=== PATIENT | male | born 1965 | race American Indian/Alaskan Native ===

== ENCOUNTER 2020-05-07 13:22 | Emergency (ER) | payer SELFPAY ==
--- NOTE | 2020-05-07 14:32 | Event Note ---
ED Screening Note ED Screening Note: right flank and right abd pain that began on 04/29/2020 states he was started on cipro and tamsulosin by a doctor on 04/29/2020 he completed a course +dysuria +frequency no dark urine or odor to urine no penile discharge no pain or swelling to the testicle PMHx HTN, did not take it today no allergies to meds This initial assessment/diagnostic orders/clinical plan/treatment(s) is/are subject to change based on patients health status, clinical progression and re- assessment by fellow clinical providers in the ED. Further treatment and workup at subsequent clinical providers discretion. Patient/guardian urged not to elope from the ED as their condition may be serious if not clinically assessed and managed. Initial orders include: labs, CT, UA
--- NOTE | 2020-05-07 15:31 | Cat Scan Report ---
CT ABDOMEN AND PELVIS WITHOUT CONTRAST HISTORY: Right flank pain. COMPARISON: None TECHNIQUE: Routine abdominal and pelvic CT exam performed without contrast. Lack of intravenous cont rast limits evaluation of the vascular and solid organs.. All CT scans at this location are performed using CT dose reduction for ALARA by means of automated exposure control. FINDINGS: CT ABDOMEN: Lung Bases: No significant abnormality. Liver: No significant abnormality. Biliary: No significant abnormality. Spleen: No significant abnormality. Unenlarged. Pancreas: No significant abnormality. Adrenals: No significant abnormality. Kidneys: There is a small 1 cm cyst in the lateral lower left kidney. There are no urinary stones or hydronephrosis. Lymphatics: No lymphadenopathy. Vasculature: No significant abnormality. Bowel/Peritoneum: No acute abnormality. No free air. No free fluid. Normal appendix. Moderate constip ation. CT PELVIC: : No significant abnormality. Lymphatics: No lymphadenopathy. Osseous Structures: No aggressive appearing osseous lesions. Additional Findings: None IMPRESSION: 1. No acute findings. 2. Moderate constipation. Signer Name: Evens Seay MD Signed: 05/07/2020 3:26 PM Workstation Name: [email or web address]
[2020-05-07 15:39] LABS: Basophils % (Auto) 0.6 % (0.0-1.8); Eosinophils # (Auto) 0.2 K/mm3 (0.0-0.4); Eosinophils % (Auto) 2.2 % (0.0-4.3); Hematocrit 45.9 % (35.5-45.6); Hemoglobin 15.3 gm/dl (11.8-15.2); Lymphocytes # (Auto) 3.2 K/mm3 (1.2-5.4); Lymphocytes % (Auto) 37.8 % (13.4-35.0); Mean Corpuscular HGB Conc 33 % (32-34); Mean Corpuscular Volume 88 fl (84-94); Monocytes # (Auto) 0.6 K/mm3 (0.0-0.8); Monocytes % (Auto) 7.1 % (0.0-7.3); Platelet Count 252 K/mm3 (140-440); Red Blood Count 5.24 M/mm3 (3.65-5.03); Red Cell Distribution Width 14.9 % (13.2-15.2)
[2020-05-07 15:53] LABS: Alanine Aminotransferase 9 units/L (7-56); Albumin 4.3 g/dL (3.9-5); BUN/Creatinine Ratio 10; Blood Urea Nitrogen 12 mg/dL (9-20); Calcium 9.4 mg/dL (8.4-10.2); Hemolysis Index 6
[2020-05-07 15:58] LABS: Bilirubin,Urine NEG (Negative); Blood,Urine NEG (Negative); Color,Urine Yellow (Yellow); Mucus,Urine FEW /HPF; Protein,Urine <15 mg/dL mg/dL (Negative); Urobilinogen,Urine < 2.0 mg/dL (<2.0)
--- NOTE | 2020-05-07 20:05 | Emergency Department Report ---
ED Abdominal Pain HPI - General Chief Complaint: Abdominal Pain Stated Complaint: ABD PAIN, SIDE PAIN Time Seen by Provider: 05/07/20 14:32 Source: patient Mode of arrival: Ambulatory Limitations: No Limitations - History of Present Illness Initial Comments: Patient is a 54-year-old -[place] male who presents for abdominal pain radiating from right flank suprapubic x3 days. Patient has been on Cipro as prescribed by PCP. Patient denies history of renal stones. However has been having hard firm stools. Symptoms are exacerbated by movement and palpation. Symptoms are relieved by nothing tried. pain rated at 5/10 aching and spasm MD Complaint: abdominal pain, flank pain - Related Data Previous Rx's Medication Instructions Recorded Last Taken Type polyethylene glycoL 3350 [Miralax 17 gm PO BID PRN #14 packet 05/07/20 Unknown Rx 3350] Allergies Allergy/AdvReac Type Severity Reaction Status Date / Time No Known Allergies Allergy Unverified 05/07/20 14:12 ED Review of Systems ROS: Stated complaint: ABD PAIN, SIDE PAIN Other details as noted in HPI Constitutional: denies: chills, fever Eyes: denies: eye pain, eye discharge, vision change ENT: denies: ear pain, throat pain Respiratory: denies: cough, shortness of breath, wheezing Cardiovascular: denies: chest pain, palpitations Endocrine: no symptoms reported Gastrointestinal: abdominal pain, nausea, constipation. denies: vomiting, melena Genitourinary: denies: urgency, dysuria Musculoskeletal: back pain. denies: joint swelling, arthralgia Skin: denies: rash, lesions Neurological: denies: headache, weakness, paresthesias Psychiatric: denies: anxiety, depression Hematological/Lymphatic: denies: easy bleeding, easy bruising ED Past Medical Hx - Past Medical History Hx Hypertension: Yes - Surgical History Past Surgical History?: No - Medications Home Medications: Home Medications Medication Instructions Recorded Confirmed Last Taken Type polyethylene glycoL 3350 [Miralax 17 gm PO BID PRN #14 packet 05/07/20 Unknown Rx 3350] ED Physical Exam - General Limitations: No Limitations General appearance: alert - Head Head exam: Present: atraumatic, normocephalic - Eye Eye exam: Present: normal appearance, EOMI Pupils: Present: normal accommodation - ENT ENT exam: Present: mucous membranes moist - Neck Neck exam: Present: normal inspection - Respiratory Respiratory exam: Present: normal lung sounds bilaterally. Absent: respiratory distress, wheezes, stridor, chest wall tenderness - Cardiovascular Cardiovascular Exam: Present: regular rate, normal rhythm, normal heart sounds - GI/Abdominal GI/Abdominal exam: Present: soft, tenderness (LLQ and superpubic to deep palpation), normal bowel sounds. Absent: distended, guarding, rebound, rigid, bruit, hernia - Expanded GI/Abdominal Exam Expanded GI/Abdominal exam: Absent: psoas sign, obturator sign, heel tap sign, Sen's sign, Rovsing's sign, tenderness at Mcburney's Point, ascites - Rectal Rectal exam: Present: deferred - Extremities Exam Extremities exam: Present: normal inspection, full ROM. Absent: tenderness, pedal edema - Back Exam Back exam: Present: normal inspection, full ROM, tenderness, CVA tenderness (R). Absent: CVA tenderness (L), vertebral tenderness - Neurological Exam Neurological exam: Present: alert, oriented X3, CN II-XII intact, normal gait - Psychiatric Psychiatric exam: Present: normal affect, normal mood - Skin Skin exam: Present: warm, dry, intact, normal color. Absent: rash ED Course Vital Signs 05/07/20 14:17 Temperature 98.7 F Pulse Rate 95 H Respiratory 16 Rate Blood Pressure 166/110 O2 Sat by Pulse 96 Oximetry ED Medical Decision Making - Lab Data Result diagrams: 05/07/20 15:18 05/07/20 15:18 Labs 05/07/20 05/07/20 05/07/20 15:18 15:18 15:40 WBC 8.5 RBC 5.24 H Hgb 15.3 H Hct 45.9 H MCV 88 MCH 29 MCHC 33 RDW 14.9 Plt Count 252 Lymph % (Auto) 37.8 H [place] % (Auto) 7.1 Eos % (Auto) 2.2 Baso % (Auto) 0.6 Lymph # (Auto) 3.2 [place] # (Auto) 0.6 Eos # (Auto) 0.2 Baso # (Auto) 0.0 Seg Neutrophils % 52.3 Seg Neutrophils # 4.4 Sodium 138 Potassium 3.7 Chloride 101.3 Carbon Dioxide 29 Anion Gap 11 BUN 12 Creatinine 1.2 Estimated GFR > 60 BUN/Creatinine Ratio 10 Glucose 98 Calcium 9.4 Total Bilirubin 0.70 AST 21 ALT 9 Alkaline Phosphatase 61 Total Protein 8.3 H Albumin 4.3 Albumin/Globulin Ratio 1.1 Urine Color Yellow Urine Turbidity Clear Urine pH 7.0 Ur Specific [place] 1.014 Urine Protein <15 mg/dl Urine Glucose (UA) Neg Urine Ketones Neg Urine Blood Neg Urine Nitrite Neg Urine Bilirubin Neg Urine Urobilinogen < 2.0 Ur Leukocyte Esterase Neg Urine WBC (Auto) 2.0 Urine RBC (Auto) 6.0 U Epithel Cells (Auto) 1.0 Urine Mucus Few - Radiology Data Radiology results: report reviewed, image reviewed Findings Reporting MD: Evens Seay Dictation Time: May 07, 2020 14:26 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 COMPARISON: None TECHNIQUE: Routine abdominal and pelvic CT exam performed without contrast. Lack of intravenous contrast limits evaluation of the vascular and solid organs.. All CT scans at this location are performed using CT dose reduction for ALARA by means of automated exposure control. FINDINGS: CT ABDOMEN: Lung Bases: No significant abnormality. Liver: No significant abnormality. Biliary: No significant abnormality. Spleen: No significant abnormality. Unenlarged. Pancreas: No significant abnormality. Adrenals: No significant abnormality. Kidneys: There is a small 1 cm cyst in the lateral lower left kidney. There are no urinary stones or hydronephrosis. Lymphatics: No lymphadenopathy. Vasculature: No significant abnormality. Bowel/Peritoneum: No acute abnormality. No free air. No free fluid. Normal appendix. Moderate constipation. CT PELVIC: : No significant abnormality. Lymphatics: No lymphadenopathy. Osseous Structures: No aggressive appearing osseous lesions. Additional Findin gs: None IMPRESSION: 1. No acute findings. 2. Moderate constipation. Signer Name: Evens Seay MD Signed: 05/07/2020 2:26 PM Workstation Name: [id number] - Medical Decision Making CT abdomen and pelvis no obstruction no bleed there is moderate constipation thr oughout large intestine. there is a chronic 5 mm renal cyst. Patient advises symptoms are improved with medications given in ED. Plan DC to home finish ciprofloxacin as prescribed by PCP. NSAIDs as needed pain. Continue to hydrate as directed. Return to ED should symptoms worsen. Patient given prescription for MiraLAX p.o. for as needed constipation. Patient DC'd to home in stable condition at this time Critical care attestation.: If time is entered above; I have spent that time in minutes in the direct care of this critically ill patient, excluding procedure time. ED Disposition Clinical Impression: Renal cyst Constipation Qualifiers: Constipation type: unspecified constipation type Qualified Code(s): K59.00 - Constipation, unspecified Abdominal pain Qualifiers: Abdominal location: unspecified location Qualified Code(s): R10.9 - Unspecified abdominal pain Disposition: TO HOME OR SELFCARE Is pt being admited?: No Does the pt Need Aspirin: No Condition: Stable Instructions: Constipation, Adult, Abdominal Pain, Adult, [id number] Prescriptions: polyethylene glycoL 3350 [Miralax 3350] 17 gm PO BID PRN #14 packet PRN Reason: Constipation Referrals: MUNDO BEAL MD [Staff Physician] - 3-5 Days AUDRA SILVERIO MD [Staff Physician] - 3-5 Days Forms: Work/School Release Form(ED) Time of Disposition: 20:24
[2020-05-07 20:37] VITALS: BP 165/90
== END 2020-05-07 20:37 | disposition home or self-care (01) ==
LOC: ED 13:22
DX: N28.1 Cyst of kidney, acquired (principal); K59.00 Constipation, unspecified; I10 Essential (primary) hypertension; Z79.899 Other long term (current) drug therapy
CPT/HCPCS: 36415; 74176; 80053; 81001; 85025

== ENCOUNTER 2020-05-19 12:17 | Emergency (ER) | payer SELFPAY ==
--- NOTE | 2020-05-19 12:41 | Emergency Department Report ---
Blank Doc - Documentation Documentation: 54-year-old male that presents with RUQ pain with radiation to right flank. This initial assessment/diagnostic orders/clinical plan/treatment(s) is/are subject to change based on patient's health status, clinical progression and re- assessment by fellow clinical providers in the ED. Further treatment and workup at subsequent clinical providers discretion. Patient/guardians urged not to elope from the ED as their condition may be serious if not clinically assessed and managed. Initial orders include: 1- Patient sent to [facility] for further evaluation and treatment 2- labs 3- UA 4- US ABD
[2020-05-19 15:42] LABS: Basophils % (Auto) 0.3 % (0.0-1.8); Eosinophils # (Auto) 0.1 K/mm3 (0.0-0.4); Eosinophils % (Auto) 1.5 % (0.0-4.3); Hemoglobin 15.2 gm/dl (11.8-15.2); Lymphocytes # (Auto) 2.8 K/mm3 (1.2-5.4); Lymphocytes % (Auto) 27.6 % (13.4-35.0); Mean Corpuscular HGB Conc 34 % (32-34); Mean Corpuscular Volume 87 fl (84-94); Monocytes # (Auto) 0.7 K/mm3 (0.0-0.8); Monocytes % (Auto) 6.7 % (0.0-7.3); Platelet Count 266 K/mm3 (140-440); Red Blood Count 5.15 M/mm3 (3.65-5.03); Red Cell Distribution Width 14.6 % (13.2-15.2)
[2020-05-19 15:56] LABS: Alanine Aminotransferase 9 units/L (7-56); Albumin 4.2 g/dL (3.9-5); BUN/Creatinine Ratio 10; Blood Urea Nitrogen 12 mg/dL (9-20); Calcium 9.6 mg/dL (8.4-10.2); Hemolysis Index 16
--- NOTE | 2020-05-19 16:51 | Ultrasound Report ---
ULTRASOUND ABDOMEN, COMPLETE INDICATION / CLINICAL INFORMATION: RUQ pain. COMPARISON: 05/07/2020 CT abdomen pelvis FINDINGS: Technically difficult examination secondary to patient body habitus, positioning, and overl eddie bowel gas. PANCREAS: No significant abnormality. ABDOMINAL AORTA: No significant abnormality. IVC: No significant abnormality. LIVER: Normal size with few scattered increased echogenicity suggesting fatty infiltration. No focal lesion. GALLBLADDER: Echogenic stones at the gallbladder neck and body measuring up to 1.6 cm. Gallbladder wa ll measures at the upper limits of normal. BILE DUCTS: No significant abnormality. Common bile duct measures 2 mm. KIDNEYS: Right: No significant abnormality. Left: 1.2 cm simple cyst at the inferior pole. SPLEEN: No significant abnormality. FREE FLUID: None. ADDITIONAL FINDINGS: None. IMPRESSION: 1. Echogenic stones at the gallbladder neck and body. No convincing evidence of acute cholecystitis. 2. Diffusely increased hepatic echogenicity suggesting some degree of fatty infiltration. 3. Small left renal cyst. Signer Name: Johann Back MD Signed: 05/19/2020 4:46 PM Workstation Name: [id number]
--- NOTE | 2020-05-19 19:45 | Emergency Department Report ---
ED Abdominal Pain HPI - General Chief Complaint: Abdominal Pain Stated Complaint: SIDE PAIN Time Seen by Provider: 05/19/20 12:40 Source: patient Mode of arrival: Ambulatory Limitations: No Limitations - History of Present Illness Initial Comments: Patient is a 54-year-old male presents emergency room with complaints of right upper quadrant abdominal pain that radiates to the back that began on 05/07/2020. He states that occasionally he does have nausea. he states that within the last 2 weeks he has had approximately 3-4 episodes of vomiting when the pain gets uncomfortable. He is able to tolerate p.o. intake and has no episodes of vomiting today. He denies any diarrhea, fever, hematochezia, hematemesis, melena, urinary symptoms. He has a past medical history of hypertension. No allergies to medications. He endorses alcohol use on the w [employer]. He denies any drug or smoking history. - Related Data Previous Rx's Medication Instructions Recorded Last Taken Type polyethylene glycoL 3350 [Miralax 17 gm PO BID PRN #14 packet 05/07/20 Unknown Rx 3350] Docusate Sodium [Colace] 100 mg PO BID PRN #20 capsule 05/19/20 Unknown Rx Famotidine [Pepcid] 40 mg PO QHS #14 tablet 05/19/20 Unknown Rx Ondansetron [Zofran Odt] 4 mg PO Q8HR PRN #10 tab.rapdis 05/19/20 Unknown Rx traMADoL [Ultram 50 MG tab] 50 mg PO Q8HR PRN #12 tablet 05/19/20 Unknown Rx Allergies Allergy/AdvReac Type Severity Reaction Status Date / Time No Known Allergies Allergy Unverified 05/07/20 14:12 ED Review of Systems ROS: Stated complaint: SIDE PAIN Other details as noted in HPI Comment: All other systems reviewed and negative ED Past Medical Hx - Past Medical History Previous Medical History?: Yes Hx Hypertension: Yes - Social History Smoking Status: Unknown if ever smoked - Medications Home Medications: Home Medications Medication Instructions Recorded Confirmed Last Taken Type polyethylene glycoL 3350 [Miralax 17 gm PO BID PRN #14 packet 05/07/20 Unknown Rx 3350] Docusate Sodium [Colace] 100 mg PO BID PRN #20 capsule 05/19/20 Unknown Rx Famotidine [Pepcid] 40 mg PO QHS #14 tablet 05/19/20 Unknown Rx Ondansetron [Zofran Odt] 4 mg PO Q8HR PRN #10 tab.rapdis 05/19/20 Unknown Rx traMADoL [Ultram 50 MG tab] 50 mg PO Q8HR PRN #12 tablet 05/19/20 Unknown Rx ED Physical Exam - General Limitations: No Limitations General appearance: alert, in no apparent distress - Head Head exam: Present: atraumatic, normocephalic - Eye Eye exam: Present: normal appearance - ENT ENT exam: Present: mucous membranes moist - Respiratory Respiratory exam: Present: normal lung sounds bilaterally. Absent: respiratory distress, wheezes, rales, rhonchi, stridor, chest wall tenderness, accessory muscle use, decreased breath sounds, prolonged expiratory - Cardiovascular Cardiovascular Exam: Present: regular rate, normal rhythm, normal heart sounds. Absent: systolic murmur, diastolic murmur, rubs, gallop - GI/Abdominal GI/Abdominal exam: Present: soft, normal bowel sounds, other (negative murphys sign, no mcburneys point ttp, negative castillo turners and cullens sign, no per itoneal signs). Absent: distended, tenderness, guarding, rebound, rigid - Neurological Exam Neurological exam: Present: alert, oriented X3 - Psychiatric Psychiatric exam: Present: normal affect, normal mood - Skin Skin exam: Present: warm, dry, intact ED Course Vital Signs 05/19/20 05/19/20 05/19/20 12:29 20:48 20:49 Temperature 98.6 F Pulse Rate 79 89 81 Respiratory 20 18 Rate Blood Pressure 166/128 Blood Pressure 156/100 [Right] O2 Sat by Pulse 99 99 Oximetry ED Medical Decision Making - Lab Data Result diagrams: 05/19/20 15:21 05/19/20 15:21 Lab Results 05/19/20 05/19/20 Range/Units 15:21 15:21 WBC 10.0 (4.5-11.0) K/mm3 RBC 5.15 H (3.65-5.03) M/mm3 Hgb 15.2 (11.8-15.2) gm/dl Hct 45.0 (35.5-45.6) % MCV 87 (84-94) fl MCH 30 (28-32) pg MCHC 34 (32-34) % RDW 14.6 (13.2-15.2) % Plt Count 266 (140-440) K/mm3 Lymph % (Auto) 27.6 (13.4-35.0) % [place] % (Auto) 6.7 (0.0-7.3) % Eos % (Auto) 1.5 (0.0-4.3) % Baso % (Auto) 0.3 (0.0-1.8) % Lymph # (Auto) 2.8 (1.2-5.4) K/mm3 [place] # (Auto) 0.7 (0.0-0.8) K/mm3 Eos # (Auto) 0.1 (0.0-0.4) K/mm3 Baso # (Auto) 0.0 (0.0-0.1) K/mm3 Seg Neutrophils % 63.9 (40.0-70.0) % Seg Neutrophils # 6.4 (1.8-7.7) K/mm3 Sodium 141 (137-145) mmol/L Potassium 4.0 (3.6-5.0) mmol/L Chloride 104.5 (98-107) mmol/L Carbon Dioxide 30 (22-30) mmol/L Anion Gap 11 mmol/L BUN 12 (9-20) mg/dL Creatinine 1.2 (0.8-1.3) mg/dL Estimated GFR > 60 ml/min BUN/Creatinine Ratio 10 % Glucose 103 H (75-100) mg/dL Calcium 9.6 (8.4-10.2) mg/dL Total Bilirubin 0.70 (0.1-1.2) mg/dL AST 14 (5-40) units/L ALT 9 (7-56) units/L Alkaline Phosphatase 61 (35-129) units/L Total Protein 8.0 (6.3-8.2) g/dL Albumin 4.2 (3.9-5) g/dL Albumin/Globulin Ratio 1.1 % Lipase 15 (13-60) units/L Vital Signs 05/19/20 05/19/20 05/19/20 12:29 20:48 20:49 Temperature 98.6 F Pulse Rate 79 89 81 Respiratory 20 18 Rate Blood Pressure 166/128 Blood Pressure 156/100 [Right] O2 Sat by Pulse 99 99 Oximetry - Radiology Data Radiology results: report reviewed Ordering Physician: NAN LINARES NP Date of Service: 05/19/20 Procedure(s): US abdomen complete Accession Number(s): [id number] cc: NAN LINARES NP ADDENDUM There is a single 1.6 cm stone in the gallbladder. Signer Name: Cristofer Castaneda MD Signed: 05/19/2020 4:55 PM Workstation Name: [id number] Addendum Transcribed By: Addendum Dictated By: Cristofer Castaneda MD Addendum Electronically Authenticated By: Cristofer Castaneda MD Addendum Signed Date/Time: 05/19/201654 DD/ /03/1654 TD/TT: / ULTRASOUND ABDOMEN, COMPLETE INDICATION / CLINICAL INFORMATION: RUQ pain. COMPARISON: 05/07/2020 CT abdomen pelvis FINDINGS: Technically difficult examination secondary to patient body habitus, positioning, and overlying bowel gas. PANCREAS: No significant abnormality. ABDOMINAL AORTA: No significant abnormality. IVC: No significant abnormality. LIVER: Normal size with few scattered increased echogenicity suggesting fatty infiltration. No focal lesion. GALLBLADDER: Echogenic stones at the gallbladder neck and body measuring up to 1.6 cm. Gallbladder wall measures at the upper limits of normal. BILE DUCTS: No significant abnormality. Common bile duct measures 2 mm. KIDNEYS: Right: No significant abnormality. Left: 1.2 cm simple cyst at the inferior pole. SPLEEN: No significant abnormality. FREE FLUID: None. ADDITIONAL FINDINGS: None. IMPRESSION: 1. Echogenic stones at the gallbladder neck and body. No convincing evidence of acute cholecystitis. 2. Diffusely increased hepatic echogenicity suggesting some degree of fatty infiltration. 3. Small left renal cyst. Signer Name: Kiersten Back MD Signed: 05/19/2020 4:46 PM Workstation Name: [id number] Transcribed By: Dictated By: KIERSTEN BACK III Electronically Authenticated By: KIERSTEN BACK III Signed Date/Time: 05/19/201645 DD/ 42 TD/TT: - Medical Decision Making Patient is a 54-year-old male presents emergency room with complaints of right upper quadrant abdominal pain that radiates to the back that began on 05/07/2020. He states that occasionally he does have nausea. he states that within the last 2 weeks he has had approximately 3-4 episodes of vomiting when the pain gets uncomfortable. He is able to tolerate p.o. intake and has no episodes of vomiting today. He denies any diarrhea, fever, hematochezia, hematemesis, melena, urinary symptoms. He has a past medical history of hypertension. No allergies to medications. He endorses alcohol use on the weekends. He denies any drug or smoking history. initial vitals with elevated BP which improved upon repeat, pt has hx of chronic HTN, he has no symptoms related to elevated BP, discussed lifestyle modifications and PCP follow up. On exam patient has no abdominal tenderness to exam, no guarding, no rebound, no rigidity, normal bowel sounds, no peritoneal signs, negative murphys sign, no mcburneys point ttp, negative castillo turners and cullens sign, no peritoneal signs. Orders placed prior to my examination. Labs are normal. Abdominal ultrasound: 1. Echogenic stones at the gallbladder neck and body. No convincing evidence of acute cholecystitis. 2. Diffusely increased hepatic echogenicity suggesting some degree of fatty infiltration. 3. Small left renal cyst. There is a single 1.6 cm stone in the gallbladder. Discussed all findings with patient and answered questions. Do not suspect acute cholecystitis at this time. Symptoms likely related to cholelithiasis/intermittent biliary colic. Patient is tolerating p. o. intake without difficulty, he has no leukocytosis, no abdominal tenderness on exam, he is afebrile. Patient given prescription for tramadol, Colace, Pepcid, Zofran. Patient be referred to general surgery and GI. Discussed very strict return precautions with patient. Advised patient Please take medication as prescribed as needed. Increase your water intake. Please follow the diet for gallstones. Follow-up with a GI doctor. Follow-up with a general surgeon. Follow-up with your primary care doctor. Return to emergency room for any new or worsening symptoms including but not limited to worsening pain, fever, unable to tolerate by mouth intake, etc. Please take your blood pressure medication as prescribed by your primary care doctor. Eat a low-sodium diet. Increase your water intake. Incorporate 30 to 60 minutes of daily exercise. Follow-up with your primary doctor regarding the elevation in your blood pressure during today's visit. - Differential Diagnosis Cholelithiasis, cholecystitis, biliary obstruction, bowel obstruction, PUD Critical care attestation.: If time is entered above; I have spent that time in minutes in the direct care of this critically ill patient, excluding procedure time. ED Disposition Clinical Impression: Renal cyst, Fatty liver, Elevated blood pressure reading Abdominal pain Qualifiers: Abdominal location: right upper quadrant Qualified Code(s): R10.11 - Right upper quadrant pain Cholelithiasis Qualifiers: Cholelithiasis location: gallbladder Cholecystitis presence: without cholecystitis Biliary obstruction: without biliary obstruction Qualified Code (s): K80.20 - Calculus of gallbladder without cholecystitis without obstruction Disposition: TO HOME OR SELFCARE Is pt being admited?: No Does the pt Need Aspirin: No Condition: Stable Instructions: Cholelithiasis, [id number], Gallbladder Eating Plan, Fatty Liver Disease Additional Instructions: Please take medication as prescribed as needed. Increase your water intake. Please follow the diet for gallstones. Follow-up with a GI doctor. Follow-up with a general surgeon. Follow-up with your primary care doctor. Return to emergency room for any new or worsening symptoms including but not limited to worsening pain, fever, unable to tolerate by mouth intake, etc. Please take your blood pressure medication as prescribed by your primary care doctor. Eat a low-sodium diet. Increase your water intake. Incorporate 30 to 60 minutes of daily exercise. Follow-up with your primary doctor regarding the elevation in your blood pressure during today's visit. Prescriptions: Famotidine [Pepcid] 40 mg PO QHS #14 tablet Docusate Sodium [Colace] 100 mg PO BID PRN #20 capsule PRN Reason: constipation traMADoL [Ultram 50 MG tab] 50 mg PO Q8HR PRN #12 tablet PRN Reason: Pain , Severe (7-10) Ondansetron [Zofran Odt] 4 mg PO Q8HR PRN #10 tab.rapdis PRN Reason: Nausea And Vomiting Referrals: PRIMARY CARE, [Primary Care Provider] - 2-3 Days [facility] [Provider Group] - 2-3 Days KERRY MCCRACKEN DO [Staff Physician] - 2-3 Days Time of Disposition: 19:45 Print Language: ITALIAN
[2020-05-19 20:50] VITALS: BP 156/100
== END 2020-05-19 20:49 | disposition home or self-care (01) ==
LOC: ED 12:17
DX: K80.20 Calculus of gallbladder without cholecystitis without obstruction (principal); N28.1 Cyst of kidney, acquired; K76.0 Fatty (change of) liver, not elsewhere classified; R10.11 Right upper quadrant pain; R03.0 Elevated blood-pressure reading, without diagnosis of hypertension; I10 Essential (primary) hypertension; Z79.899 Other long term (current) drug therapy
CPT/HCPCS: 36415; 76700; 80053; 83690; 85025